=== PATIENT | male | born 1985 | race Asian ===

== ENCOUNTER → 2018-08-27 | Outpatient (CLI) | payer BC | LOC: GMAM 14:51 | PROVIDERS: ATTEND Family Medicine | DX: E29.9 Testicular dysfunction, unspecified (principal) ==

== ENCOUNTER → 2018-11-24 | Outpatient (CLI) | payer BC | LOC: GMAM 10:32 | PROVIDERS: ATTEND Family Medicine | DX: E23.6 Other disorders of pituitary gland (principal); L83 Acanthosis nigricans ==

== ENCOUNTER → 2019-02-11 | Outpatient (CLI) | payer BC | LOC: GMAM 10:24 | PROVIDERS: ATTEND Family Medicine | DX: E29.9 Testicular dysfunction, unspecified (principal) ==